=== PATIENT | male | born 1945 | race Caucasian/White ===

== ENCOUNTER 2018-06-04 11:20 | Day surgery (SDC) | payer OTHER ==
[~2018-06-04] VITALS: Ht 180.3 cm; Wt 108.6 kg
[~2018-06-04 11:20] MED LIST: 8 Hour C500 MG; ACET325 PO; ATOR40TA PO; Aspir 8181 MG PO; CALCIT950; FINA5 PO; FISH1000; GABA100; Hydrochlorothia25 MG PO; LEVSOD75 PO; LIOT5 PO; OMEPRAZOLE MAGN20 MG PO; TAMS.4ER PO; ZYRTEC10 M1 PO
[2018-06-04] MEDS ORDERED: ANDROGEL2.5 GM ×2 (12:26→12:27)
--- NOTE | 2018-06-04 13:53 | NUR ---
06/04/18 [id number] Megan Taylor ASSISTED THE PATIENT TO THE BATHROOM. PATIENT UPDATED ON PRIOR PROCEDURE RUNNING LONG. PATIENT BACK TO BED AND COMFORTABLE, CALL LIGHT AT BEDSIDE
== END 2018-06-04 15:57 | disposition home or self-care (01) ==
LOC: ORSCSDS 11:20
PROVIDERS: Internal Medicine Gastroenterology
PROC: 0DBN8ZX Excision of Sigmoid Colon, Via Natural or Artificial Opening Endoscopic, Diagnostic (ICD-10-PCS; principal; 2018-06-04 12:30)
PROC: 0DB68ZX Excision of Stomach, Via Natural or Artificial Opening Endoscopic, Diagnostic (ICD-10-PCS; 2018-06-04 12:30)
PROC: 0DB58ZX Excision of Esophagus, Via Natural or Artificial Opening Endoscopic, Diagnostic (ICD-10-PCS; 2018-06-04 12:30)
DX: K22.70 Barrett's esophagus without dysplasia (principal); K31.7 Polyp of stomach and duodenum; K63.5 Polyp of colon; K64.8 Other hemorrhoids; Z86.010 Personal history of colon polyps; Z85.038 Personal history of other malignant neoplasm of large intestine; Z12.11 Encounter for screening for malignant neoplasm of colon; E78.5 Hyperlipidemia, unspecified; E03.9 Hypothyroidism, unspecified; I10 Essential (primary) hypertension; Z79.82 Long term (current) use of aspirin; Z79.899 Other long term (current) drug therapy
CPT/HCPCS: 88305; J7120

== ENCOUNTER 2018-09-02 12:21 | Day surgery (SDC) | payer OTHER ==
[~2018-09-02 12:21] MED LIST changes: +ANDROGEL2.5 GM
--- NOTE | 2018-09-02 13:19 | NUR ---
PT ARRIVES INTO [facility] FOR EPIDURAL INJECTION BY DR. Riya TEMPLETON. Ambulatory in Day Surgery Pre-Op teaching done. Pt verbalizes understanding.
--- NOTE | 2018-09-02 14:00 | NUR ---
ASSUMED PT CARE. INFORMED CONSENT ON FILE. PT AWAITING DR. TEMPLETON.
--- NOTE | 2018-09-02 15:00 | NUR ---
Patient up to Ambulate independently. Gait steady. Discharge instructions reviewed with patient. Patient verbalizes understanding. Copy given to patient to take home. Discharged via wheelchair to private car for ride home.
== END 2018-09-02 15:00 | disposition home or self-care (01) ==
LOC: ORSCMMR 12:21 → ORD 13:30 → ORSCMMR 13:30 → ORD 14:15 → ORSCMMR 15:00
PROVIDERS: Orthopaedic Surgery
PROC: 3E0R33Z Introduction of Anti-inflammatory into Spinal Canal, Percutaneous Approach (ICD-10-PCS; principal; 2018-09-02 13:30)
DX: M47.26 Other spondylosis with radiculopathy, lumbar region (principal); M48.062 Spinal stenosis, lumbar region with neurogenic claudication; E03.9 Hypothyroidism, unspecified; E78.5 Hyperlipidemia, unspecified; I10 Essential (primary) hypertension; Z79.82 Long term (current) use of aspirin; Z79.899 Other long term (current) drug therapy
CPT/HCPCS: J1040

== ENCOUNTER → 2019-07-15 | Outpatient (CLI) | payer OTHER | END | disposition home or self-care (01) | LOC: PLD 11:35 → LAB SHORT 11:35 | DX: D48.5 Neoplasm of uncertain behavior of skin (principal) | CPT/HCPCS: 88305 ==

== ENCOUNTER 2020-01-04 09:37 | Emergency (ER) | payer OTHER ==
[~2020-01-04] VITALS: Ht 180.3 cm; Wt 106.6 kg
== END 2020-01-04 10:24 | disposition home or self-care (01) ==
LOC: ER 09:37
DX: S01.532A Puncture wound without foreign body of oral cavity, initial encounter (principal); Z91.09 Other allergy status, other than to drugs and biological substances; Z79.899 Other long term (current) drug therapy; Z79.82 Long term (current) use of aspirin; W26.8XXA Contact with other sharp object(s), not elsewhere classified, initial encounter; Y93.E8 Activity, other personal hygiene
CPT/HCPCS: 99283

== ENCOUNTER 2021-05-27 06:21 | Day surgery (SDC) | payer OTHER ==
[~2021-05-27] VITALS: Ht 177.8 cm; Wt 106.6 kg
[~2021-05-27 06:21] MED LIST changes: +LIOT50 PO; +OCUVITE BLUE L1 EACH PO
[2021-05-27] MEDS ORDERED: PRED5 PO (07:07)
== END 2021-05-27 09:12 | disposition home or self-care (01) ==
LOC: ORSCSDS 06:21
PROVIDERS: Podiatrist Foot & Ankle Surgery
PROC: 0SGM04Z Fusion of Right Metatarsal-Phalangeal Joint with Internal Fixation Device, Open Approach (ICD-10-PCS; principal; 2021-05-27 07:30)
DX: M20.21 Hallux rigidus, right foot (principal); M20.5X1 Other deformities of toe(s) (acquired), right foot; I10 Essential (primary) hypertension; Z79.899 Other long term (current) drug therapy; E66.9 Obesity, unspecified; Z68.33 Body mass index [BMI] 33.0-33.9, adult
CPT/HCPCS: C1713; J0171; J0690; J7120

== ENCOUNTER 2021-06-24 10:19 | Day surgery (SDC) | payer OTHER ==
[~2021-06-24] VITALS: Ht 177.8 cm; Wt 107.0 kg
[~2021-06-24 10:19] MED LIST changes: +FISH OIL 1,2001 EAC7 PO; +HYDCHL25 PO; +OMEP20ER PO; +PRED5 PO; +SYNTHROID75 MC1 PO; +TESTOSTERONE75 G1; +ZYRTEC10 M2 PO
[2021-06-24] MEDS ORDERED: Acetaminophen650 M1 (10:43)
[2021-06-24] MEDS ORDERED: Calcium Carbon500 MG (10:44)
[2021-06-24] MEDS ORDERED: A AND D OINTM42.5 GM (10:44)
== END 2021-06-24 13:46 | disposition home or self-care (01) ==
LOC: ORSCSDS 10:19
PROVIDERS: Internal Medicine Gastroenterology
PROC: 0DB58ZX Excision of Esophagus, Via Natural or Artificial Opening Endoscopic, Diagnostic (ICD-10-PCS; principal; 2021-06-24 11:30)
PROC: 0DBL8ZX Excision of Transverse Colon, Via Natural or Artificial Opening Endoscopic, Diagnostic (ICD-10-PCS; principal; 2021-06-24 11:30)
PROC: 0D5K8ZZ Destruction of Ascending Colon, Via Natural or Artificial Opening Endoscopic (ICD-10-PCS; principal; 2021-06-24 11:30)
DX: K22.70 Barrett's esophagus without dysplasia (principal); Z85.038 Personal history of other malignant neoplasm of large intestine; Z86.010 Personal history of colon polyps; D12.3 Benign neoplasm of transverse colon; K64.8 Other hemorrhoids; K21.9 Gastro-esophageal reflux disease without esophagitis; I99.8 Other disorder of circulatory system; E78.5 Hyperlipidemia, unspecified; E03.9 Hypothyroidism, unspecified; Z79.899 Other long term (current) drug therapy; Z79.82 Long term (current) use of aspirin
CPT/HCPCS: 88305; J2704; J7120

== ENCOUNTER 2022-01-17 14:27 | Observation (INO) | payer OTHER ==
[~2022-01-17] VITALS: Ht 180.3 cm; Wt 110.1 kg
[~2022-01-17 14:27] MED LIST changes: +A AND D OINTM42.5 GM; +Acetaminophen650 M1; +Calcium Carbon500 MG
[2022-01-17 14:49] LABS: BASOPHILS ABSOLUTE AUTO 0.09 K/mm3 (0.00-0.23); BASOPHILS PERCENT AUTO 1 % (0-2); EOSINOPHILS PERCENT AUTO 1 % (0-6); Hematocrit 43.8 % (37.0-53.0); Hemoglobin 15.1 g/dL (13.5-17.5); IMMATURE GRAN ABSOLUTE AUTO 0.03 K/mm3 (0.00-0.10); IMMATURE GRAN PERCENT AUTO 0 % (0-1); LYMPHOCYTES PERCENT AUTO 25 % (21-46); MONOCYTES ABSOLUTE AUTO 0.74 K/mm3 (0.16-1.47); MONOCYTES PERCENT AUTO 7 % (4-13); Mean Corpuscular HGB 30.9 pg (26.0-34.0); Mean Corpuscular HGB Conc 34.5 g/dL (31.5-36.5); Mean Corpuscular Volume 90 fL (80-100); NEUTROPHILS ABSOLUTE AUTO 6.57 K/mm3 (1.96-9.15); NEUTROPHILS PERCENT AUTO 66 % (41-73); Platelet Count 192 K/mm3 (150-400); RDW Coefficient Variation 12.7 % (11.7-14.2); RDW Standard Deviation 41.4 fL (35.1-46.3); Red Blood Cell Count 4.89 M/mm3 (4.30-5.90); White Blood Cell Count 10.03 K/mm3 (4.00-11.30)
[2022-01-17] MEDS ORDERED: OCUVITE BLUE L1 EACH PO (15:07)
[2022-01-17 16:15] LABS: Influenza A, PCR NEGATIVE (NEGATIVE); Influenza B, PCR NEGATIVE (NEGATIVE); Resp Syncytial Virus, PCR NEGATIVE (NEGATIVE); SARS-Cov-2 (COVID-19) PCR, MMC NEGATIVE (NEGATIVE)
[2022-01-17 18:38] LABS: Albumin, Blood 3.4 g/dL (3.4-5.0); Albumin/Globulin Ratio 1.2 (0.8-1.8); Bilirubin, Total 0.4 mg/dL (0.1-1.0); Bun/Creatinine Ratio 32.1 (12.0-20.0); Calcium, Blood 8.8 mg/dL (8.5-10.1); Creatinine, Blood 0.84 mg/dL (0.60-1.20); Globulin, Blood 2.8 g/dL (2.2-4.0); Potassium, Blood 5.6 mmol/L (3.5-5.5); Total Protein, Blood 6.2 g/dL (6.4-8.2)
[2022-01-17] MEDS ORDERED: CALCIUM 600 +1 EA11 PO (20:56)
[2022-01-18 00:38] LABS: CPK Creatine Kinase 95 U/L (39-308)
[2022-01-18 03:54] LABS: BASOPHILS ABSOLUTE AUTO 0.05 K/mm3 (0.00-0.23); BASOPHILS PERCENT AUTO 1 % (0-2); EOSINOPHILS ABSOLUTE AUTO 0.06 K/mm3 (0.00-0.68); EOSINOPHILS PERCENT AUTO 1 % (0-6); IMMATURE GRAN ABSOLUTE AUTO 0.03 K/mm3 (0.00-0.10); IMMATURE GRAN PERCENT AUTO 0 % (0-1); LYMPHOCYTES ABSOLUTE AUTO 1.37 K/mm3 (0.84-5.20); LYMPHOCYTES PERCENT AUTO 13 % (21-46); MONOCYTES ABSOLUTE AUTO 0.92 K/mm3 (0.16-1.47); MONOCYTES PERCENT AUTO 9 % (4-13); Mean Corpuscular HGB 30.9 pg (26.0-34.0); Mean Corpuscular HGB Conc 34.1 g/dL (31.5-36.5); Mean Corpuscular Volume 91 fL (80-100); NEUTROPHILS ABSOLUTE AUTO 8.01 K/mm3 (1.96-9.15); NEUTROPHILS PERCENT AUTO 77 % (41-73); RDW Standard Deviation 43.2 fL (35.1-46.3); Red Blood Cell Count 4.53 M/mm3 (4.30-5.90); White Blood Cell Count 10.44 K/mm3 (4.00-11.30)
[2022-01-18 04:06] LABS: Albumin, Blood 3.4 g/dL (3.4-5.0); Albumin/Globulin Ratio 1.3 (0.8-1.8); Bilirubin, Total 0.7 mg/dL (0.1-1.0); Bun/Creatinine Ratio 25.5 (12.0-20.0); Calcium, Blood 8.4 mg/dL (8.5-10.1); Creatinine, Blood 0.94 mg/dL (0.60-1.20); Globulin, Blood 2.7 g/dL (2.2-4.0); Potassium, Blood 4.5 mmol/L (3.5-5.5); Total Protein, Blood 6.1 g/dL (6.4-8.2)
--- NOTE | 2022-01-18 04:28 | NUR ---
PATIENT ARRIVED TO ICU AT 2024. ATTACHED TO MONITORS. FAMILY AT BEDSIDE. PATIENT COMPLAINING OF SEVERE CHEST PAIN THAT RADIATES TO BACK. NO NUMBNESS OR TINGLING IN HANDS. NO SOB BUT STATES THAT IT IS EXTREMELY PAINFUL TO TAKE A DEEP BREATH. ALERT AND ORIENTED X4. PATIENT RECEIVED IV PAIN MEDICINE IN ED BUT NOT EFFECTIVE. MD NOTIFIED AND ORDERS RECEIVED FOR DILAUDID AND INCREASED FREQUENCY OF FENTANYL PUSHES. AFTER ADMININSTERING PRN MEDICINE, PATIENT STATES NO RELEIF FROM PAIN. MD NOTIFIED, ORDERS RECEIVED FOR FENTANYL TUBER MACHINE CUTTER. PATIENT EDUCATED ON USE OF TUBER MACHINE CUTTER AND USED IT APPROPRIATELY. UPON REEVALUATION, PATIENT STILL IN PAIN. NOTIFIED MD AND ORDERS RECEIVED FOR SL NTG AND NORCO AT 0045. NOTED THAT PATIENT HAD NOT RECIEVED NTG BEFORE ARRIVING TO ICU. 10 MINUTES AFTER ADMINISTRATION OF NTG, PATIENT STATES GREAT RELIEF OF CHEST PAIN AND BACK PAIN SIGNIFICANTLY SUBSIDING. PATIENT ABLE TO SLEEP A FEW HOURS. AT 0300 BP BEGAN TO ELEVATE AND HR STARTED INCREASING. PER EMAR ORDERS TO KEEP SBP <120 AND HR <60, ESMOLOL GTT STARTED BUT LOADING DOSE NOT GIVEN DUE TO PATIENT HAVING BRADYCARDIA ON ARRIVAL TO ICU. 0 WAS ALERTED TO A BED OPENING AT OS. [facility] CALLED AND FAMILY UPDATED. PATIENT LEFT UNIT AT 414 VIA [facility].
== END 2022-01-18 04:20 | disposition short-term general hospital (02) ==
LOC: ER 14:27 → ICUW 14:28 → ER 17:59 → MEDS 17:59 → ICUW 20:28
PROVIDERS: Student in an Organized Health Care Education/Training Program; ADMIT Internal Medicine
DX: I74.11 Embolism and thrombosis of thoracic aorta (principal); E87.5 Hyperkalemia; R78.5 Finding of other psychotropic drug in blood; E03.9 Hypothyroidism, unspecified; K21.9 Gastro-esophageal reflux disease without esophagitis; I44.0 Atrioventricular block, first degree; I44.4 Left anterior fascicular block; I45.4 Nonspecific intraventricular block; Z91.048 Other nonmedicinal substance allergy status; Z96.651 Presence of right artificial knee joint; Z90.49 Acquired absence of other specified parts of digestive tract; Z20.822 Contact with and (suspected) exposure to COVID-19
CPT/HCPCS: 0241U; 71045; 71275; 80053; 82550; 83735; 83880; 84484; 85025; 85379; 86850; 86900; 86901; 93005; 93010; 96374-59; 96375; 96375-59; 96376; 96376-59; 99285-25; A9270; C1751; G0378; J1170; J2405; J3010; Q9967